=== PATIENT | male | born 1965 | race Two or more races ===

== ENCOUNTER → 2019-05-08 | Emergency (ER) | payer MEDICAID ==
[~2019-05-08] VITALS: Ht 180.3 cm; Wt 123.4 kg
[2019-05-08 16:00] VITALS: BP 117/72
== END | disposition left against medical advice (07) ==
LOC: EDUNIT# 15:13 → ER 15:19 → EDBD 15:19
DX: R10.13 Epigastric pain (principal); R11.10 Vomiting, unspecified; Z53.21 Procedure and treatment not carried out due to patient leaving prior to being seen by health care provider
CPT/HCPCS: 93005